=== PATIENT | male | born 1995 | race Two or more races ===

== ENCOUNTER → 2024-02-10 | Outpatient (CLI) | payer OTHER, SELFPAY ==
--- NOTE | 2024-02-10 | XR_ITS ---
Examination: Abdomen sonogram, complete Date and time of exam: February 10, 2024 0721 hours INDICATIONS: Abnormal liver function tests on laboratory examination performed 3 weeks ago. Technique: Multiple real-time grayscale transabdominal sonographic images of the abdomen have been obtained. Findings: Normal gallbladder Normal common bile duct 0.3 cm Pancreatic head 2.4 cm Aorta not enlarged Liver 17.6 cm fatty infiltration smooth contour no focal liver lesions Normal hepatopedal portal venous flow Patent IVC Right kidney 9.8 x 6.1 x 5.2 cm renal cortex 2.8 cm Left kidney 10.3 x 6.1 x 6.7 cm renal cortex 2.5 cm No hydronephrosis or renal calculi Spleen 9.7 cm IMPRESSION: Normal gallbladder Normal common bile duct Mild hepatomegaly fatty liver
[2024-02-10 09:00] LABS: Glucose Estimated Average 100 mg/dL (80-131); Hemoglobin A1C 5.1 % Hgb (4.8-6.0)
[2024-02-10 09:09] LABS: Alanine Aminotransferase 389 U/L (10-49); Alkaline Phosphatase 68 U/L (46-116); Aspartate Amino Transferase 200 U/L (0-34); Bilirubin,Direct 0.2 mg/dL (0.0-0.3); Bilirubin,Total 0.7 mg/dL (0.3-1.2); Cardiac Risk Estimate 6.8 RATIO (4.0-6.7); Cholesterol 260 mg/dL (132-200); Free T4 (Free Thyroxine) 1.27 ng/dL (0.89-1.76); HDL Cholesterol 38 mg/dL (40-60); LDL Cholesterol,Calculated 170 mg/dL (0-130); Thyroid Stimulating Hormone 3.38 uIU/mL (0.55-4.78); Total Protein 7.3 gm/dL (5.7-8.2); Triglycerides 261 mg/dL (30-150)
[2024-02-10 09:35] LABS: Hepatitis A Antibody IgM Non Reactive (Non React); Hepatitis B Core Antibody IgM Non Reactive (Non React); Hepatitis B Surface Antigen Non Reactive (Non React); Hepatitis C Antibody Non Reactive (Non React)
== END | disposition home or self-care (01) ==
LOC: CDIM 06:38 → COPL 06:43
PROVIDERS: PCP Internal Medicine; Referring Provider Internal Medicine; Visit Provider Radiology Diagnostic Radiology
DX: K76.0 Fatty (change of) liver, not elsewhere classified (principal); Z00.00 Encounter for general adult medical examination without abnormal findings
CPT/HCPCS: 36415; 76700; 80061; 80074; 80076; 83036; 84439; 84443